=== PATIENT | female | born 1950 | race Caucasian/White ===

== ENCOUNTER → 2016-08-22 | Outpatient (CLI) | payer MEDICARE, BC ==
[~2016-08-22] MED LIST: HYDROCHLOROTHIA25 MG PO; LOVASTATIN20 M1 PO; OMEPRAZOLE20 M2 PO; TENORMIN25 M1 PO
--- NOTE | ~2016-08-22 | US24 ---
[facility] A Service of [facility] & [facility] RADIOLOGY TEXT RESULTS PATIENT: CHANDRIKA DUGAN LOCATION: [facility] : 50 UNIT #: [id number] AGE: [address]: Berhane Pepper MD SEX: F ORDER DR: [id number] [facility] [address] [place], [place] [address] [id number] O MR#: [id number] Acc #: [id number] NAME: CHANDRIKA DUGAN : 1950 SEX: F STUDY DATE/TIME: 08/22/2016 12:57 UNIT: [facility] ROOM: STUDY DESCRIPTION: US Breast Unilateral Attending Physician: Berhaen Pepper M.D. Ordering Physician: Berhane Pepper M.D. Primary Care Physician: Berhane Pepper M.D. MEDICAL IMAGING REPORT This report is preliminary unless electronic signature is present EXAM Targeted diagnostic right breast ultrasound date: 08/22/2016 HISTORY Suspected benign nodule in the right breast for which 6-month followup right breast diagnostic ultrasound was recommended. COMPARISON Right breast diagnostic mammogram and ultrasound 02/15/2016. FINDINGS Targeted sonographic imaging was performed of the right breast. At the 10-11 o'clock axis approximately 3 cm from the nipple, a hypoechoic focus of dense fibroglandular tissue is seen containing multiple internal cystic foci, favored to represent cluster of microcysts. On previous examination, it was described as potentially representing ectatic ductal confluence. In either case, its overall size and morphology appear stable when carefully compared to the 02/15/2016 examination. No new abnormalities are identified. No associated architectural distortion or clustered microcalcification is seen. IMPRESSION Right breast BIRADS category 3, probable benign finding. What is thought to represent a benign clustered microcysts is seen near the 10-11 o'clock axis of the right breast. The overall size and morphology appears unchanged when carefully compared to 02/15/2016. It is recommend patient return for her routine bilateral screening mammograms cycle in January 2017, at which time an additional diagnostic targeted right breast ultrasound should be performed. Continued surveillance through 2 years would be recommended of the right breast finding. The findings and recommendations were discussed with the patient today in the radiology department. [facility] A Service of [facility] & [facility] RADIOLOGY TEXT RESULTS PATIENT: CHANDRIKA DUGAN LOCATION: [facility] : 50 UNIT #: [id number] AGE: [address]: Berhane Pepper MD SEX: F ORDER DR: Dictated by... Milagro Bermeo M.D. THIS IS AN ELECTRONICALLY VERIFIED REPORT Milagro Bermeo M.D. at 08/23/2016 7:04 AM AKILA/marcia TD: 08/22/2016 14:06 JOB #: [id number] MEDICAL IMAGING REPORT Page 1 of 1 COPY
== END | disposition home or self-care (01) ==
LOC: CWCC 12:40
DX: R92.8 Other abnormal and inconclusive findings on diagnostic imaging of breast (principal)
CPT/HCPCS: 76641